=== PATIENT | male | born 1980 | race Caucasian/White ===

== ENCOUNTER 2021-02-24 08:27 | Outpatient (CLI) | payer OTHER, SELFPAY ==
[2021-02-24 10:13] LABS: SARS-CoV-2 RNA PCR Positive (Negative)
== END 2021-02-24 08:28 | disposition home or self-care (01) ==
PROVIDERS: PCP Nurse Practitioner; Visit Provider Nurse Practitioner
DX: U07.1 COVID-19 (principal); R05.9 Cough, unspecified
CPT/HCPCS: C9803; U0003; U0005

== ENCOUNTER 2021-09-15 16:57 | Emergency (ER) | payer OTHER, SELFPAY ==
[2021-09-15 17:13] VITALS: BP 148/94; PULSE 96; RESP 16; TEMP 36.9; O2SAT 98
--- NOTE | 2021-09-15 17:27 | ED.GENADULT ---
HPI - General Adult General Chief complaint: Wound/Laceration Stated complaint: left leg cut by ankle History of Present Illness HPI narrative: This is a 41 yo male presenting to the ED for lower extremity laceration Which occurred at 10:00 a.m. this morning. This was not ordered troubling plate load on the truck and the edge stroke in the anterior aspect his left lower extremity over the zhong. The bleeding was controlled with direct pressure. The patient cleaned the wound and dressed it at home however his felt that he should come in hospital sutured shut. Patient's last tetanus shot was in 2011. the patient has been ambulating without difficulty for most of the day. Related Data Home Medications Medication Instructions Recorded Confirmed No Home Medications 09/15/21 09/15/21 Allergies Allergy/AdvReac Type Severity Reaction Status Date / Time amoxicillin Allergy Unknown Verified 09/15/21 17:31 Review of Systems Constitutional: Constitutional: Denies chills Eyes: Eyes: Denies change in vision ENT: Denies dysphagia Cardiovascular: Cardiovascular: Denies chest pain Respiratory: Respiratory: Denies chest congestion Gastrointestinal: Gastrointestinal: Denies abdominal pain Genitourinary: Genitourinary: Denies hematuria Musculoskeletal: Musculoskeletal: Denies back pain Integumentary/Breasts: Skin/Breast: Denies breast pain Neurologic: Denies confusion Psychiatric: Psychiatric: Denies anxiety Endocrine: Endocrine: Denies excessive sweating Hematologic/Lymphatic: Hematologic/Lymphatic: Denies easy bleeding PMFSH Past Medical History Medical History (Updated 09/15/21 @ 17:54 by Alo Aranda MD) Cholesteatoma Surgical History Surgical History (Updated 09/15/21 @ 17:50 by Alo Aranda MD) H/O hand surgery History of appendectomy Exam Const: General: healthy appearing Nutritional Appearance: well nourished Orientation/consciousness: patient oriented x3 HENMT: Head: normal to inspection Eyes: Conjunctivae: conjunctivae normal Neck: Neck: normal visual inspection Chest: Chest palpation & inspection: normal inspection of the chest Resp: Effort & Inspection: normal respiratory effort Cardio: Rate: regular rate Rhythm: regular rhythm GI: GI Palp: Yes Soft to palpation, No Tenderness to palpation present (GI) and No Guarding due to palpation present (GI) Skin: Other: 3cm vertical laceration over the left zhong Neuro: General: patient oriented x3 Cranial nerves: Yes Nystagmus not present Speech: normal speech Extrem: Other: L Psych: Mental Status: mental status grossly normal Course Vital Signs Vital signs: Vital Signs Temperature 98.5 F 09/15/21 17:13 Pulse Rate 96 09/15/21 17:13 Respiratory Rate 16 09/15/21 17:13 Blood Pressure 148/94 H 09/15/21 17:13 Pulse Oximetry 98 09/15/21 17:13 Oxygen Delivery Room Air 09/15/21 17:13 Temperature 98.5 F 09/15/21 17:13 Pulse Rate 96 09/15/21 17:13 Respiratory Rate 16 09/15/21 17:13 Blood Pressure 148/94 H 09/15/21 17:13 Pulse Oximetry 98 09/15/21 17:13 Oxygen Delivery Room Air 09/15/21 17:13 Procedures Laceration Laceration 1: Date: 09/15/21 Time: 17:51 Site: lower extremity Side (If applicable): left Size (cm): 3 Description: linear Depth: simple, single layer Local Anesthetic: lidocaine 1% and with epi Pre-repair: wound explored and irrigated ====== Skin Level ====== Skin layer closed with: nylon Size (cm): 4-0 Number of sutures: 6 Technique: simple, interrupted ====== Subcutaneous Layer ====== ====== Muscle Layer ====== ====== Tendon Layer ====== Medical Decision Making MDM Narrative Medical decision making narrative: Patient presents ED with a laceration to his left lower extremity. Patient is given a Tdap booster. Laceration wa
[2021-09-15] MEDS: LIDO 1%/EPINEPHRINE 1:100,000 20 ML VIAL 10 ML INFILTRATE (17:39)
[2021-09-15] MEDS: TETANUS,DIPHTHERIA,AC PERTUSSIS ADULT 0.5 ML (ADACEL) IM (17:40)
[2021-09-15] MEDS: BACITRACIN ZINC OINTMENT 0.9 GRAM PACKET 1 PACKET TOPICAL (17:54)
[2021-09-15 18:00] VITALS: BP 133/88; PULSE 94; RESP 16; O2SAT 98
== END 2021-09-15 18:02 | disposition home or self-care (01) ==
PROVIDERS: Emergency Provider Emergency Medicine; PCP Family Medicine
DX: S81.812A Laceration without foreign body, left lower leg, initial encounter (principal); W45.8XXA Other foreign body or object entering through skin, initial encounter
CPT/HCPCS: 12002; 90471; 90715; 99282; A9270